=== PATIENT | male | born 1965 | race Caucasian/White ===

== ENCOUNTER 2016-12-11 16:45 | Emergency (ER) | payer OTHER ==
--- NOTE | 2016-12-14 14:00 | ER ---
ADMIT: 12/11/2016 RM/LOC: ER [facility] MR#: [id number] [place], [place] [id number] DINAH ABRAHAM [address] [place] [address] Emergency Room Report SEX: M AGE: 51 : 1965 DATE: 12/11/2016 CHIEF COMPLAINT: Nausea, vomiting, and some chest discomfort. HISTORY OF PRESENT ILLNESS: The patient is a 51-year-old male, no medical problems, presents to the ER with some concerns of some intermittent pain in his chest. He states his symptoms actually began before that when he had some nausea and had numerous episodes of vomiting. After he vomited several times, he notes he had some discomfort in his chest, which he had not experienced before, so he wanted to come in to get checked out. With this pain, he has had no shortness of breath, no fevers or chills, no abdominal pain. He denies any change in bowel or bladder function. He has not had any leg swelling. The patient describes the discomfort in his chest as kind of a sharp discomfort in 1 spot. He does state it is a little bit worse with position when he lies flat and does have some reproduction of this discomfort when he pushes on his chest. He did not have any injuries or new activities that would account for any injury to his chest. REVIEW OF SYSTEMS: A 10-point review of systems is done and otherwise negative except as in HPI. PAST MEDICAL HISTORY: Negative. PAST SURGICAL HISTORY: None. MEDICATIONS: None. ALLERGIES: SEE NURSE'S NOTE. SOCIAL HISTORY: He usually smokes about 2 to 3 cigarettes a day. Denies any drug use. Alcohol, the patient does state that he drinks at least a 30-pack a week and admits that he probably has a drinking problem. PHYSICAL EXAMINATION: See T-sheet. CHEST: Focused exam shows he does have an area on his chest that is somewhat tender with palpation. HEART: Sounds otherwise unremarkable. LUNG: Sounds are clear and there is no crepitus. LABORATORY DATA AND IMAGING: Chest x-ray showed nothing acute. EKG showed sinus rhythm, rate of 84, no signs of ST-elevation or acute ID or ischemia. CBC was normal. Chemistries are normal other than he did have an elevated AST of 413, and ALT of 366. His D-dimer was very slightly elevated at 0.61 and cardiac enzymes were normal. EMERGENCY DEPARTMENT COURSE: Based on the patient's symptoms, it did seem like he definitely had symptoms of nausea and vomiting before he developed chest pain. His chest pain is actually pretty mild at this point and what he is describing does not particularly sound cardiac in nature. He has not have ADMIT: 12/11/2016 RM/LOC: [facility] MR#: [id number] [address] [id number] DINAH ABRAHAM [address] [place] [address] Emergency Room Report SEX: M AGE: 51 : 1965 any shortness of breath, but we did ambulate the patient and his ambulatory O2 saturation showed he was not hypoxic and his heart rate went up to 105. He did not feel symptomatic while he ambulated. As he had, had symptoms for over 12 hours of this chest discomfort after presentation and still has normal cardiac enzymes, I do not think this is likely cardiac in nature. It does sound like he had some irritation to his esophagus likely from his retching. He has not had any blood in his vomitus. As the patient has never had a cardiac workup done before and actually does not see a doctor regularly, I did speak to Dr. Ulloa, who is on for [facility], and I will have the patient follow up with Dr. Ulloa as an outpatient for any further cardiac workup. The patient is strongly encouraged to decrease his alcohol intake and stop smoking. He will be discharged home after he got some Zofran here with prescription for Phenergan to use as needed for nausea and vomiting. The patient is told that if he develops any concerning symptoms whatsoever, he is strongly encouraged to return to the Emergency Department immediately. The patient discharged home in stable and improved condition with; DIAGNOSES: 1. Alcohol abuse. 2. Elevated liver enzymes. 3. Nausea and vomiting. 4. Atypical chest pain. 5. Transaminitis. George Adhikari MD/ ronal JOB #: [id number] CC: Riki Gerard MD, Attending Physician Syd Ulloa MD, Family Physician
== END 2016-12-11 19:40 | disposition home or self-care (01) ==
LOC: ER 16:45
DX: R07.89 Other chest pain (principal); R11.2 Nausea with vomiting, unspecified; F10.10 Alcohol abuse, uncomplicated; R74.0 Nonspecific elevation of levels of transaminase and lactic acid dehydrogenase [LDH]; R94.5 Abnormal results of liver function studies